=== PATIENT | female | born 1980 | race Caucasian/White ===

== ENCOUNTER 2020-09-17 10:28 | Emergency (ER) | payer OTHER ==
[~2020-09-17 10:28] MED LIST: FIORICET TAB1 EA PO; FLONASE 0.05% N16 GM; NEXIUM20 MG PO; NORCO 5-325 TA1 EACH PO; ZANTAC150 MG PO
[2020-09-17] MEDS ORDERED: Voltaren Gel 1 % TOP (16:49)
[2020-09-17] MEDS ORDERED: NORFLEX 100 MG100 MG PO (16:49)
[2020-09-17] MEDS ORDERED: MEDROL DOSEPAK 24 MG PO (16:49)
== END 2020-09-17 17:00 | disposition home or self-care (01) ==
LOC: ER1 10:28
DX: M25.511 Pain in right shoulder (principal)
CPT/HCPCS: 71045; 73030; 96372; 96374; 99283; J1885; J2930